=== PATIENT | male | born 1985 | race American Indian/Alaskan Native ===

== ENCOUNTER 2021-01-01 16:02 | Emergency (ER) | payer SELFPAY ==
[2021-01-01 16:08] VITALS: BP 160/94
[2021-01-01] MEDS ORDERED: oxyCODONE /ACETAMINOPHEN 5-325MG TAB PO ONE (16:43)
[2021-01-01] MEDS ORDERED: DIPHtheria,PERTUSSIS(ACELL),TETANUS VACCINE/PF 0.5 ML VIAL IM ONE (16:43)
--- NOTE | 2021-01-01 16:50 | Emergency Department Report ---
- General Chief Complaint: Laceration/Recheck/Suture Stated Complaint: LT POINTER FINGER CUT Time Seen by Provider: 01/01/21 16:43 Source: patient Mode of arrival: Ambulatory Limitations: No Limitations - History of Present Illness Initial Comments: 35-year-old male states that he was using a chainsaw and accidentally injured the tip of his left index finger. Came to the ER immediately after applying a dry occlusive dressing. Patient unaware when his last tetanus was complaining of pain. He denies any past medical history patient in no acute distress bleeding controlled -: Sudden Location: other (Left index finger) Place: home Patient Tetanus UTD: No Context: accidental Associated Symptoms: pain Treatments Prior to Arrival: bandage - Related Data Previous Rx's Medication Instructions Recorded Last Taken Type cephALEXin [Keflex] 500 mg PO Q12HR 7 Days #14 cap 01/01/21 Unknown Rx traMADoL [Ultram 50 MG tab] 50 mg PO Q6HR PRN #15 tablet 01/01/21 Unknown Rx Allergies Allergy/AdvReac Type Severity Reaction Status Date / Time No Known Allergies Allergy Verified 01/01/21 16:04 ED Review of Systems ROS: Stated complaint: LT POINTER FINGER CUT Other details as noted in HPI Constitutional: no symptoms reported. denies: chills, fever ENT: denies: ear pain Cardiovascular: denies: chest pain, palpitations, dyspnea on exertion Endocrine: denies: excessive sweating Gastrointestinal: denies: abdominal pain, nausea, constipation Musculoskeletal: other (Left index finger laceration) Neurological: denies: headache ED Past Medical Hx - Past Medical History Previous Medical History?: No - Surgical History Past Surgical History?: No - Social History Smoking Status: Never Smoker Substance Use Type: None - Medications Home Medications: Home Medications Medication Instructions Recorded Confirmed Last Taken Type cephALEXin [Keflex] 500 mg PO Q12HR 7 Days #14 cap 01/01/21 Unknown Rx traMADoL [Ultram 50 MG tab] 50 mg PO Q6HR PRN #15 tablet 01/01/21 Unknown Rx ED Physical Exam - General Limitations: No Limitations General appearance: alert, in no apparent distress - Head Head exam: Present: atraumatic - Eye Eye exam: Present: normal appearance - ENT ENT exam: Present: normal exam, mucous membranes moist - Respiratory Respiratory exam: Present: normal lung sounds bilaterally. Absent: respiratory distress - Cardiovascular Cardiovascular Exam: Present: regular rate, normal heart sounds - Extremities Exam Extremities exam: Present: other (Left index finger jagged laceration no active bleeding) - Neurological Exam Neurological exam: Present: alert, oriented X3 - Psychiatric Psychiatric exam: Present: normal affect - Skin Skin exam: Present: warm, dry ED Course Vital Signs 01/01/21 01/01/21 16:04 16:50 Temperature 97.9 F Pulse Rate 78 Respiratory 20 22 Rate Blood Pressure 160/94 O2 Sat by Pulse 97 Oximetry - Reevaluation(s) Reevaluation #1: 01/01/21 18:28 Patient tolerated suturing well bleeding is controlled he is in no distress - Laceration /Wound Repair Left Finger Wound Location: upper extremity Wound Length (cm): 1 (Jagged flap) Wound's Depth, Shape: irregular, flap Wound Explored: no foreign body removed Irrigated w/ Saline (ccs): 50 Betadine Prep?: Yes Anesthesia: 1% Lidocaine Volume Anesthetic (ccs): 7 Wound Debrided: minimal Suture Size/Type: 4:0, nylon Number of Sutures: 4 Layer Closure?: No Sterile Dressing Applied?: Yes Progress: Patient tolerated well ED Medical Decision Making - Radiology Data Radiology results: report reviewed Comminuted fracture of the mid and distal index phalanx. - Medical Decision Making 35-year-old male using a chainsaw at home accidentally lacerated his left index finger tip. X-ray revealed comminuted fracture of the left mid distal index phalanx, with a jagged laceration. The wound sutured. Clean dry dressing applied and finger splint applied patient instructed to follow-up with [facility] for orthopedic referral. - Differential Diagnosis Laceration , open finger fracture Critical Care Time: No Critical care attestation.: If time is entered above; I have spent that time in minutes in the direct care of this critically ill patient, excluding procedure time. ED Disposition Clinical Impression: Open fracture of phalanx of left index finger Qualifiers: Encounter type: initial encounter Phalanx: distal Fracture alignment: displaced Qualified Code(s): S62.631B - Displaced fracture of distal phalanx of left index finger, initial encounter for open fracture Laceration of left index finger w/o foreign body w/o damage to nail Qualifiers: Encounter type: initial encounter Qualified Code(s): S61.211A - Laceration without foreign body of left index finger without damage to nail, initial encounter Disposition: DC-01 TO HOME OR SELFCARE Is pt being admited?: No Does the pt Need Aspirin: No Condition: Stable Instructions: Cast or Splint Care, Adult, [id number], Finger Fracture, Adult, Sutures, Adolfo, or Adhesive Wound Closure, [id number], Finger Fracture, Adult, [id number] Additional Instructions: Keep wound clean and dry. Keep splint in place. Call [facility] and get a referral for hand surgeon or orthopedic surgeon on Sunday. Take cephalexin as prescribed take tramadol for severe S for severe pain as prescribed it is okay for you to take [id number] ibuprofen or Tylenol in between the tramadol to control pain take Advil or Tylenol as prescribed by package insert. Today you received your tetanus so you are up-to-date. Follow-up immediately for any worsening pain or symptoms Prescriptions: cephALEXin [Keflex] 500 mg PO Q12HR 7 Days #14 cap traMADoL [Ultram 50 MG tab] 50 mg PO Q6HR PRN #15 tablet PRN Reason: Pain Referrals: PRIMARY CARE, [Primary Care Provider] - 2-3 Days Time of Disposition: 18:41
--- NOTE | 2021-01-01 17:20 | XRay Report ---
LEFT INDEX FINGER, 2 VIEWS INDICATION / CLINICAL INFORMATION: left index finger injured in chain saw. COMPARISON: None available. FINDINGS: There is prominent soft tissue trauma to the distal index finger. There is comminuted fracture involv ing the distal phalanx of the index finger. Fracture involves the phalangeal tuft in the mid diaphysi s. A small portion of the phalangeal tuft has been avulsed and is in the superficial soft tissues. Th e remainder of the finger is intact. IMPRESSION: Comminuted fracture involving the mid and distal aspect of the distal phalanx index finge r. There is associated significant soft tissue trauma present. Signer Name: Mariana Bond MD Signed: 01/01/2021 5:15 PM Workstation Name: [id number]
[2021-01-01] MEDS ORDERED: LIDOCAINE (1%) 10 MG/1 ML VIAL 20 ML MDV INFILTRATI ONE (17:50)
== END 2021-01-01 18:50 | disposition home or self-care (01) ==
LOC: ED 16:02
DX: S62.601B Fracture of unspecified phalanx of left index finger, initial encounter for open fracture (principal); Z79.899 Other long term (current) drug therapy; X58.XXXA Exposure to other specified factors, initial encounter; Y93.89 Activity, other specified; Y92.009 Unspecified place in unspecified non-institutional (private) residence as the place of occurrence of the external cause; Y99.8 Other external cause status
CPT/HCPCS: 90471; 90715